=== PATIENT | male | born 1965 | race Asian ===

== ENCOUNTER 2021-02-15 03:49 | Emergency (ER) | payer MEDICAID, SELFPAY ==
[2021-02-15 03:49] VITALS: BP 126/82; PULSE 70; RESP 18; O2SAT 99; BMI 33.4
[2021-02-15 03:59] VITALS: BP 141/74; PULSE 62; RESP 20; TEMP 36.7; O2SAT 100
--- NOTE | 2021-02-15 04:07 | ED.MALEGU ---
HPI - Male Genitourinary General Chief complaint: Urogenital-Male Stated complaint: genital pain Time Seen by Provider: 02/15/21 04:07 Source: patient Mode of arrival: EMS History of Present Illness HPI Narrative: This is 56-year-old male without significant past medical history who presents via EMS with severe ?gentle pain? after he had a prostate biopsy early on 02/14 at [facility] in [place]. Patient states that initially he received Percocet which covered his pain until approximately 6 p.m. at which time he began experiencing increasing pain and call the office who instructed him to alternate Tylenol and ibuprofen. However, patient states that he was unable to get any relief from these medications and that it felt like glass when he attempted to urinate. Related Data Home Medications Medication Instructions Recorded Confirmed adalimumab [Humira(CF) Pen] 40 mg SUBCUT Q2W 02/15/21 02/15/21 fluocinonide 3 drp TOPICAL NEEDED 02/15/21 02/15/21 minoxidil 1 tab PO DAILY 02/15/21 02/15/21 Previous Rx's Medication Instructions Recorded ketorolac 10 mg PO Q6H PRN 5 Days #20 tab 02/15/21 Allergies Allergy/AdvReac Type Severity Reaction Status Date / Time No Known Allergies Allergy Verified 02/15/21 03:55 Review of Systems Review of Systems: Pertinent positives and negatives as stated in the HPI and 10 point review of systems is otherwise negative. [facility] Past Medical History Source: nursing notes reviewed Medical History Difficulty urinating Hematuria Surgical History H/O prostate biopsy Social History Social History Alcohol intake: never Patient Tobacco Use Status: Never used Tobacco Smoked in Last 30 Days: No Use of substances other than those prescribed or required for medical reasons: No Advance Directives: No Advance Directives Information Provided: No Physical Exam Vital Signs: Vital Signs: Last Vital Signs Temp 98.0 F 02/15/21 05:59 Pulse 62 02/15/21 05:59 Resp 20 02/15/21 05:59 BP 141/74 H 02/15/21 05:59 Pulse Ox 100 02/15/21 03:59 Body Mass Index 33.4 VITAL SIGNS: Reviewed. GENERAL: Well developed, well nourished, in no acute distress. HEAD: Normocephalic/atraumatic EYES: PERRLA, EOMI OROPHARYNX: no oral lesions noted, posterior pharynx clear NECK: Supple, no adenopathy LUNGS: Normal breath sounds. No adventitious sounds or accessory muscle use. SpO2<100> CARDIOVASCULAR: Regular rate and rhythm without noted murmurs, no JVD or lower extremity edema. ABDOMEN: Soft, non-tender, non-distended with bowel sounds. NEUROLOGIC: Alert and oriented x 4. Course Course Course Narrative: 56-year-old male with history and clinical presentation consistent with inadequate pain control and on review of urinalysis findings consistent with patient's recent procedure. Patient was provided with combination analgesics as well as oxycodone and on re-evaluation patient has had almost complete resolution of his discomfort. His provided detailed instructions on the best regimen to treat his pain and instructed to follow-up with Dr. Molina. MDM - Male Genitourinary Lab Data Labs: Lab Results 02/15/21 Range/Units 04:01 Urine Color PINK Urine Appearance CLEAR Urine pH 6.0 (5.0-8.0) Ur Specific [place] <= 1.005 (1.005-1.025) Urine Protein TRACE (NEG-TRACE) MG/DL Urine Glucose (UA) NEG (NEG) MG/DL Urine Ketones NEG (NEG) MG/DL Urine Blood 3+ H (NEG) Urine Nitrite NEG (NEG) Ur Leukocyte Esterase TRACE H (NEG) Urine RBC 30-49 H (0) /HPF Urine WBC 1-4 (0-4) /HPF Ur Squamous Epith Cells TRACE /LPF Urine Bacteria NONE /LPF Urine Mucus TRACE /LPF Urine Sperm NOTED Discharge Plan Discharge Clinical Impression: Dysuria, Hematuria Patient Disposition: Home, Self-Care Instructions: Dysuria (ED) Additional Instructions: 1. Tylenol 1000 mg, orally, every 6 hours as needed for pain control. Do not exceed 4000 mg within 24 hours. 2. A prescription for Toradol has been sent to your pharmacy and you should take this medication as prescribed. 3. Call the office of Dr. Molina to discuss further pain management options as needed. 4. Please continue to drink plenty of fluids, especially water. Return to the ER for any worsening of your symptoms. Prescriptions: New ketorolac 10 mg tablet 10 mg PO Q6H PRN (Reason: pain) 5 Days Qty: 20 RF: 0 No Action minoxidil 2.5 mg tablet 1 tab PO DAILY RF: 0 fluocinonide 0.05 % solution 3 drp topical NEEDED RF: 0 Humira(CF) Pen 40 mg/0.4 mL pen injector kit 40 mg subcut Q2W RF: 0 Referrals: Physician,Unknown [Primary Care Provider] - 2 days
[2021-02-15 04:12] LABS: Color Urine PINK; Glucose Urine UA NEG (NEG); Leukocyte Esterase Urine TRACE (NEG); Nitrite Urine NEG (NEG); Specific Gravity - Urine <= 1.005 (1.005-1.025); UACC Culture Trigger YES; Urine Blood 3+ (NEG); Urine Ketones NEG (NEG); Urine Protein TRACE MG/DL (NEG-TRACE)
[2021-02-15 04:13] LABS: Appearance Urine CLEAR
[2021-02-15 04:21] LABS: Mucus Urine TRACE /LPF; RBC Urine 30-49 /HPF (0); Sperm Urine NOTED; Squamous Epithelial Cell Urine TRACE /LPF
[2021-02-15] MEDS: Acetaminophen 325 MG TABLET 975 MG PO (05:06)
[2021-02-15] MEDS: oxyCODONE HCl Immed Release 5 MG TABLET PO (05:07)
[2021-02-15] MEDS: Ketorolac Tromethamine 15 MG/ML VIAL IM (05:07)
[2021-02-15 05:59] VITALS: BP 141/74; PULSE 62; RESP 20; TEMP 36.7
== END 2021-02-15 06:26 | disposition home or self-care (01) ==
PROVIDERS: Emergency Provider Student in an Organized Health Care Education/Training Program
DX: R30.0 Dysuria (principal); R31.9 Hematuria, unspecified; Z98.890 Other specified postprocedural states
CPT/HCPCS: 81001; 81003; 87086; 96372; 99284; 99285; J1885